=== PATIENT | male | born 1995 | race Caucasian/White ===

== ENCOUNTER 2020-11-06 19:30 | Emergency (ER) | payer OTHER ==
[~2020-11-06 19:30] MED LIST: BENTYL10 MG PO; ONDANSETRON ODT4 MG SL
[2020-11-06] MEDS ORDERED: PEPCID AC20 MG PO (21:38)
[2020-11-06] MEDS ORDERED: TRIAMCINOLONE454 GM TOP (21:38)
[2020-11-06] MEDS ORDERED: PREDNISONE 20MG20 MG PO (21:38)
[2020-11-06 21:45] LABS: BASOPHIL 0.9 % (0-2); EOSINOPHIL 1.7 % (0-5); HCT 50.6 % (42.0-52.0); LYMPHOCYTE 22.6 % (15-48); MCH 29.3 pg (25.0-31.0); MCHC 33.6 g/dL (32.0-36.0); MCV 87.2 fL (78.0-100.0); MONOCYTE 7.6 % (0-12); MPV 11.7 fL (6.0-9.5); NRBC 0; PLT 283 K/uL (150-400); RDW 12.6 % (11.5-14.0); WBC 8.1 K/uL (4.0-10.5)
[2020-11-06 22:19] LABS: ALBUMIN 4.3 g/dL (3.4-5.0); BILIRUBIN - TOTAL 0.8 mg/dL (0.2-1.0); BUN/CREAT RATIO (CALC) 9.1 RATIO; CREATININE 1.1 mg/dL (0.67-1.17); GLOBULIN (CALCULATION) 3.4 g/dL; TOTAL PROTEIN 7.7 g/dL (6.4-8.2)
[2020-11-06 23:27] LABS: BILIRUBIN 1+ mg/dL (NEGATIVE); BLOOD TRACE-INTACT Ery/uL (NEGATIVE); CLARITY CLEAR (CLEAR); COLOR YELLOW (YELLOW); GLUCOSE (U) NORMAL (NORMAL); LEUKOCYTES TRACE Leu/uL (NEGATIVE); NITRITE NEGATIVE (NEGATIVE); PROTEIN TRACE (LOW) mg/dL (NEGATIVE); SPECIFIC GRAVITY 1.025 (1.001-1.030)
[2020-11-06 23:35] LABS: BACTERIA TRACE; URINARY RBC RARE
[2020-11-10 16:08] LABS: CHLAMYDIA TRACHOMATIS, NAA Negative (Negative); NEISSERIA GONORRHOEAE, NAA Negative (Negative)
== END 2020-11-07 01:29 | disposition home or self-care (01) ==
LOC: FER 19:30
PROVIDERS: Nurse Practitioner Family
DX: R10.32 Left lower quadrant pain (principal); Z88.5 Allergy status to narcotic agent
CPT/HCPCS: 36415; 80053; 81001; 85025; 87491; 87591; 96372; J0696; J1580; J1885; J2405; J7030